=== PATIENT | male | born 1985 | race Caucasian/White ===

== ENCOUNTER → 2017-02-28 | Outpatient (CLI) | payer OTHER ==
[~2017-02-28] MED LIST: NO HOME MEDS
--- NOTE | 2017-02-28 16:00 | REP ---
PARTIAL RIGHT KNEE, THREE VIEWS: HISTORY: Pain. COMPARISON: 09/17/2016 There is no acute fracture or dislocation. The joint spaces are normal in appearance. IMPRESSION: There is no acute fracture or dislocation. Signed by Arthur Chambers MD 02/28/2017 04:04 P
--- NOTE | 2017-02-28 16:01 | REP ---
NASAL BONES, THREE VIEWS: HISTORY: Pain. There is no acute fracture or bone lesion. The sinuses are clear. IMPRESSION:Normal study. Signed by Arthur Chambers MD 02/28/2017 04:04 P
--- NOTE | 2017-02-28 16:02 | REP ---
ORBITS, FOUR VIEWS: HISTORY: Pain. There is no acute fracture or bone lesion. The sinuses are clear. IMPRESSION: There is no acute fracture or bone lesion. Signed by Arthur Chambers MD 02/28/2017 04:04 P
[2017-02-28 19:43] LABS: ALKALINE PHOSPHATASE 135 U/L (45-117); ALT/SGPT 91 U/L (12-78); ANION GAP 6 MEQ/L (8-16); AST/SGOT 52 U/L (15-37); BILIRUBIN,TOTAL 0.4 MG/DL (0.2-1.0); BLOOD UREA NITROGEN 15 MG/DL (7-18); CALCIUM LEVEL 8.3 MG/DL (8.5-10.1); CARBON DIOXIDE LEVEL 30 MEQ/L (21-32); CHLORIDE LEVEL 106 MEQ/L (98-107); CREATININE FOR GFR 1.29 MG/DL (0.70-1.30); GLOMERULAR FILTRATION RATE > 60.0 (>60); GLUCOSE, FASTING 102 MG/DL (70-105); POTASSIUM SERUM 4.1 MEQ/L (3.5-5.1); SODIUM LEVEL 142 MEQ/L (136-145)
[2017-02-28 19:44] LABS: ALBUMIN 3.7 GM/DL (3.2-5.2); ALBUMIN/GLOBULIN RATIO 1.28 (1.00-1.93); CHOLESTEROL LEVEL 231 MG/DL (<200); TOTAL PROTEIN 6.6 GM/DL (6.4-8.2); TRIGLYCERIDES LEVEL 696 MG/DL (<150)
[2017-02-28 20:02] LABS: BASO # 0.1 K/mm3 (0.0-0.2); BASO % 1.4 % (0.0-1.0); EOS # 0.2 K/mm3 (0.0-0.50); EOS % 2.9 % (0.0-3.0); LYMPH # 2.5 K/mm3 (1.5-4.5); LYMPH % 36.8 % (24.0-44.0); MEAN CORPUSCULAR HEMOGLOBIN 31.3 pg (27.0-33.0); MEAN CORPUSCULAR HGB CONC 34.8 g/dl (32.0-36.5); MEAN CORPUSCULAR VOLUME 89.9 fl (80.0-96.0); MONO # 0.3 K/mm3 (0.0-0.8); MONO % 5.3 % (0.0-5.0); NEUTROPHILS # 3.4 K/mm3 (1.8-7.7); NEUTROPHILS % 51.9 % (36.0-66.0); RED CELL DISTRIBUTION WIDTH 12.9 % (11.5-14.5); WHITE BLOOD COUNT 6.5 K/mm3 (4.0-10.0)
== END ==
LOC: M WUC 14:57
PROVIDERS: ATTEND Physician Assistant Medical
DX: M25.561 Pain in right knee (principal); I10 Essential (primary) hypertension; Z11.3 Encounter for screening for infections with a predominantly sexual mode of transmission

== ENCOUNTER → 2017-03-09 | Outpatient (CLI) | payer OTHER ==
--- NOTE | 2017-03-10 04:55 | REP ---
Clinical: Elevated liver function tests. Technique: Time hopson scale ultrasound examination using curved array transducer. Findings: Ultrasound examination demonstrates fatty infiltration to the liver with areas of fatty sparing, and no significant focal hepatic abnormality. The pancreas is incompletely evaluated due to interposed bowel gas and decreased through transmission. The gallbladder is normal and without wall thickening, pericholecystic fluid, or gallstones. No biliary ductal dilatation is appreciated and the common bile duct measures 1.5 mm diameter. The right kidney is normal in reniform shape without hydronephrosis and measures 11.9 x 6.6 x 4.6 cm. Impression: Fatty infiltration to the liver with areas of fatty sparing. Otherwise normal right upper quadrant ultrasound. Signed by Duy Holland MD 03/10/2017 04:46 A
--- NOTE | 2017-03-10 06:54 | REP ---
CT chest with contrast: 03/09/2017. Clinical history: Follow-up 2.5 mm pulmonary nodule left upper lobe. Dyspnea. Smoking history. The patient received a bolus of 75 ml of Isovue 370 and scanning through the chest with coronal and sagittal reconstructions and thick slab lung window MIP reformats. Again noted in the left upper lobe subpleural region near the anterior axillary line is a 2.5 mm noncalcified nodule best seen on image 42 today. The remainder of the left lung and the entire right lung are without other nodules, infiltrate, pleural thickening, pleural based mass or calcification nor pleural effusion. There are no solid masses. Heart is not enlarged. There is no pericardial thickening or effusion. The aorta is without aneurysm or dissection. The main right and left pulmonary arteries in the mediastinum are without filling defects. No pathologic sized nodes in the mediastinum, hilum on either side. Axilla and supraclavicular regions intact. Bone windows show the sternum, manubrium, medial clavicles, scapula, humeral heads, ribs and the thoracic spine and lower cervical region all without fracture or focal lesion. The upper abdomen shows liver and spleen grossly intact and those portions visualized. The gallbladder shows no calcified stone. Adrenal glands intact. Upper poles kidneys, visualized portion of pancreas, stomach and colon were all unremarkable. Impression: 1. Stable CT with no evidence of infiltrate, effusion, new nodule or mass. There is a 2.5 mm noncalcified nodule subpleural region left upper lobe near the anterior axillary line and unchanged. According to Fleischner Society for pulmonary nodule followup recommendations for nodules of this size (less than 4 mm), an exam should be performed 1 year from the initial examination and if documented stable after 1 year, no further follow-up is needed for that nodule. No other finding. Signed by Marcos Thornton MD 03/10/2017 04:42 P
== END ==
LOC: M RAD 07:36
PROVIDERS: ATTEND Physician Assistant Medical
DX: R94.5 Abnormal results of liver function studies (principal); K76.0 Fatty (change of) liver, not elsewhere classified; R91.1 Solitary pulmonary nodule

== ENCOUNTER 2017-04-18 07:40 | Emergency (ER) | payer MEDICAID, OTHER ==
[~2017-04-18] VITALS: Ht 185.4 cm; Wt 118.0 kg
[2017-04-18] MEDS ORDERED: LOSA100T36 PO (08:00)
[2017-04-18] MEDS ORDERED: LISI-538 PO (08:58)
[2017-04-18 09:07] VITALS: BP 130/62
--- NOTE | 2017-04-19 16:05 | ECGEPIP ---
Stationary ECG Study [facility] - ED Test Date: 2017-04-18 Pat Name: MASTER ESPITIA Department: Room: - Gender: M Clinical Research Monitor: ana cristina : 1985 Requested By: Reyes Tai Order Number: [id number] Reading MD: Qi Rocha Measurements Intervals [place] Rate: 82 P: 4 IN: 138 QRS: 32 QRSD: 104 T: 85 QT: 359 QTc: 421 Interpretive Statements SINUS RHYTHM WITH FREQUENT SUPRAVENTRICULAR PREMATURE COMPLEXES NONSPECIFIC T-WAVE ABNORMALITY ABNORMAL RHYTHM ECG NO PRIOR FOR COMPARISON Electronically Signed On 04-19-2017 16:05:00 EDT by Qi Rocha
[2017-05-02] MEDS ORDERED: CIPR500T89 PO (15:07)
== END 2017-04-18 09:13 | disposition home or self-care (01) ==
LOC: M ED 08:14
DX: T46.4X5A Adverse effect of angiotensin-converting-enzyme inhibitors, initial encounter (principal); X58.XXXA Exposure to other specified factors, initial encounter; Y92.9 Unspecified place or not applicable; Y93.9 Activity, unspecified; Y99.9 Unspecified external cause status; I10 Essential (primary) hypertension; F17.200 Nicotine dependence, unspecified, uncomplicated; Z91.030 Bee allergy status

== ENCOUNTER 2017-05-02 13:35 | Emergency (ER) | payer OTHER ==
[~2017-05-02 13:35] MED LIST changes: +LISI-538 PO; +LOSA100T36 PO
[2017-05-02] MEDS ORDERED: ONDANSETRON 4MG/2ML VIAL (J2405) IV ONE (14:00)
[2017-05-02] MEDS ORDERED: NS 1,000 ML IV ONE (14:00)
[2017-05-02] MEDS ORDERED: MORPHINE 4 MG/ML 1ML SYRINGE IV ONE (14:00)
[2017-05-02 14:22] LABS: BASO # 0.1 K/mm3 (0.0-0.2); BASO % 0.7 % (0.0-1.0); EOS # 0.5 K/mm3 (0.0-0.50); EOS % 3.8 % (0.0-3.0); LARGE UNSTAINED CELL # 0.2 K/mm3 (0.0-0.4); LARGE UNSTAINED CELL % 1.3 % (0.0-4.0); LYMPH # 2.4 K/mm3 (1.5-4.5); MEAN CORPUSCULAR HEMOGLOBIN 30.9 pg (27.0-33.0); MEAN CORPUSCULAR HGB CONC 33.5 g/dl (32.0-36.5); MEAN CORPUSCULAR VOLUME 92.4 fl (80.0-96.0); MONO # 0.6 K/mm3 (0.0-0.8); MONO % 4.7 % (0.0-5.0); NEUTROPHILS # 9.7 K/mm3 (1.8-7.7); NEUTROPHILS % 72.5 % (36.0-66.0); PLATELET COUNT, AUTOMATED 159 k/mm3 (150-450); WHITE BLOOD COUNT 13.4 K/mm3 (4.0-10.0)
--- NOTE | 2017-05-02 14:36 | REP ---
Clinical: Acute right upper quadrant pain radiating to the scapula. Technique: Ramirez scale ultrasound using curved array transducer. Findings: The liver demonstrates fatty infiltration with focal sparing at the gallbladder fossa. Liver and pancreas are otherwise normal in contour, size, and echogenicity without focal hepatic or pancreatic lesions identified. The gallbladder is normal without gallstones, significant wall thickening or pericholecystic fluid. Sonographic Abernathy's sign was elicited during examination. No biliary ductal dilatation is appreciated, and the common bile duct measures 3.8 mm diameter. The right kidney is normal in reniform shape without hydronephrosis and measures 11.7 x 6.6 x 5.4 cm. No ascites. Visualized portions of the abdominal aorta normal. Impression: 1. Hepatic steatosis. 2. Sonographic Abernathy's sign without cholelithiasis or pericholecystic fluid and no biliary ductal dilatation. Finding is nonspecific. Signed by Duy Holland MD 05/02/2017 02:27 P
[2017-05-02 14:38] LABS: ALBUMIN 3.5 GM/DL (3.2-5.2); ALBUMIN/GLOBULIN RATIO 0.92 (1.00-1.93); ALKALINE PHOSPHATASE 139 U/L (45-117); ALT/SGPT 57 U/L (12-78); AMYLASE 38 U/L (25-115); ANION GAP 7 MEQ/L (8-16); AST/SGOT 29 U/L (15-37); BILIRUBIN,DIRECT < 0.1 MG/DL (0.0-0.2); BILIRUBIN,TOTAL 0.4 MG/DL (0.2-1.0); BLOOD UREA NITROGEN 8 MG/DL (7-18); CALCIUM LEVEL 9.1 MG/DL (8.5-10.1); CARBON DIOXIDE LEVEL 27 MEQ/L (21-32); CHLORIDE LEVEL 104 MEQ/L (98-107); CREATININE FOR GFR 1.25 MG/DL (0.70-1.30); GLOMERULAR FILTRATION RATE > 60.0 (>60); GLUCOSE, FASTING 122 MG/DL (70-105); POTASSIUM SERUM 4.1 MEQ/L (3.5-5.1); SODIUM LEVEL 138 MEQ/L (136-145); TOTAL PROTEIN 7.3 GM/DL (6.4-8.2)
[2017-05-02] MEDS ORDERED: FLAG500T PO (15:07)
[2017-05-02] MEDS ORDERED: CIPR-249 PO (15:07)
[2017-05-02] MEDS ORDERED: NORCOTAB PO (15:07)
[2017-05-02] MEDS ORDERED: ZOFR4TAB3 PO (15:07)
[2017-05-02 15:12] VITALS: BP 137/66
[2017-05-02] MEDS ORDERED: CIPROFLOXACIN 500 MG TAB PO ONE (15:15)
[2017-05-02] MEDS ORDERED: metroNIDAZOLE (FLAGYL) 500 MG TAB PO ONE (15:15)
== END 2017-05-02 15:17 | disposition home or self-care (01) ==
LOC: M ED 14:43
DX: K80.50 Calculus of bile duct without cholangitis or cholecystitis without obstruction (principal); I10 Essential (primary) hypertension; Z79.899 Other long term (current) drug therapy; Z91.030 Bee allergy status; F17.210 Nicotine dependence, cigarettes, uncomplicated

== ENCOUNTER → 2017-10-16 | Outpatient (CLI) | payer OTHER ==
[~2017-10-16] MED LIST changes: +CIPR-249 PO; +FLAG500T PO; +NORCOTAB PO; +ZOFR4TAB3 PO
--- NOTE | 2017-10-16 13:51 | REP ---
Right hand series: Four views. History: Second metacarpal pain. No injury. Findings: Four views of the right hand show overall normal mineralization. No evidence of arthropathy or erosive change. No periosteal reaction or bony destructive lesion is seen. No change from comparison radiographs dated September 17, 2016. Impression: Negative right hand views. Signed by Rocco Duggan MD 10/16/2017 03:03 P
== END ==
LOC: M WUC 12:36
PROVIDERS: ATTEND Physician Assistant
DX: M25.541 Pain in joints of right hand (principal)

== ENCOUNTER → 2018-12-19 | Outpatient (CLI) | payer OTHER ==
[~2018-12-19] MED LIST changes: -LOSA100T36 PO; +LOSA100T50 PO; +ZOFR4TAB14 PO; -ZOFR4TAB3 PO
--- NOTE | 2018-12-19 13:25 | REP ---
Right humerus two views: There is no fracture or dislocation. No calcifications or foreign bodies. Mineralization is normal. Impression: Essentially negative right humerus. The humeral head is underpenetrated on one of the two views. Electronically Signed by Sotero Calderon MD 12/19/2018 01:16 P
--- NOTE | 2018-12-19 13:25 | REP ---
Right elbow for views: Mineralization and joint spaces are unremarkable. There is no fracture or dislocation. No effusion. No calcifications or foreign bodies. There is an olecranon spur. Impression: Olecranon spur, otherwise negative right elbow. The Electronically Signed by Sotero Calderon MD 12/19/2018 01:17 P
== END ==
LOC: M WUC 12:22
PROVIDERS: ATTEND Physician Assistant
DX: M70.21 Olecranon bursitis, right elbow (principal)

== ENCOUNTER → 2019-03-07 | Outpatient (CLI) | payer OTHER ==
[~2019-03-07] MED LIST changes: +HYDR-3715 PO; -NORCOTAB PO
--- NOTE | 2019-03-07 12:23 | REP ---
RIGHT FOOT, FOUR VIEWS: HISTORY: Pain. There is no acute fracture or dislocation. The joint spaces are normal in appearance. IMPRESSION: There is no acute fracture or dislocation. Electronically Signed by Arthur Chambers MD 03/07/2019 12:25 P
[2019-03-07 13:50] LABS: BASO # 0.1 10^3/uL (0.0-0.2); EOS # 0.2 10^3/uL (0.0-0.50); EOS % 2.3 % (0.0-3.0); HEMATOCRIT 50.6 % (42.0-52.0); HEMOGLOBIN 16.6 g/dl (13.5-17.5); LYMPH # 2.7 10^3/uL (1.5-4.5); LYMPH % 34.3 % (24.0-44.0); MEAN CORPUSCULAR HEMOGLOBIN 29.7 pg (27.0-33.0); MEAN CORPUSCULAR HGB CONC 32.8 g/dl (32.0-36.5); MEAN CORPUSCULAR VOLUME 90.7 fl (80.0-96.0); MONO # 0.7 10^3/uL (0.0-0.8); MONO % 8.3 % (0.0-5.0); NEUTROPHILS # 4.2 10^3/uL (1.8-7.7); NEUTROPHILS % 52.7 % (36.0-66.0); PLATELET COUNT, AUTOMATED 178 10^3/uL (150-450); RED BLOOD COUNT 5.58 10^6/uL (4.30-6.10); WHITE BLOOD COUNT 7.9 10^3/uL (4.0-10.0)
== END ==
LOC: M WUC 10:37
PROVIDERS: ATTEND Physician Assistant
DX: M79.671 Pain in right foot (principal)

== ENCOUNTER → 2019-08-26 | Outpatient (CLI) | payer OTHER ==
[~2019-08-26] MED LIST changes: +IBUP1TAB7 PO
--- NOTE | 2019-08-27 02:47 | REP ---
Clinical: Right knee pain Technique: AP, lateral, bilateral oblique and sunrise views right knee . Findings: The osseous structures and joint spaces are intact and normal. There is no evidence for acute fracture or dislocation. No joint effusion is appreciated. Surrounding soft tissues are unremarkable. No subcutaneous emphysema or radiodense foreign body. Impression: Normal examination. No acute fracture or dislocation. Electronically Signed by Duy Holland MD 08/27/2019 02:38 A
== END ==
LOC: M WUC 15:03
PROVIDERS: ATTEND Nurse Practitioner Family
DX: M25.561 Pain in right knee (principal)

== ENCOUNTER → 2019-08-31 | Outpatient (CLI) | payer OTHER ==
--- NOTE | 2019-08-31 14:52 | REP ---
MRI RIGHT KNEE: TECHNIQUE: Axial proton density fat saturation, sagittal proton density T2 STIR, water excitation, coronal proton density, proton density fat saturation. I do not see evidence of a meniscal tear. Posterior cruciate ligament is normal in signal and intact. Anterior cruciate ligament demonstrates mild scattered high signal on T2-weighted images suggesting a mild sprain. Focal oval cyst with a few internal septations is seen adjacent to the tibial insertion of the ACL measuring about 1 cm in maximum diameter. There is a tiny 5 mm cyst along the posterior margin of the anterior cruciate ligament at its femoral insertion. Collateral ligaments are intact. Medial and lateral patellar retinacula are intact. Extensor mechanism is intact. There is mild global chondromalacia. There is no bone marrow edema or occult fracture. There is a small joint effusion. No popliteal cyst is seen. IMPRESSION: No meniscal tear. Findings suggesting mild sprain of the anterior cruciate ligament. Collateral ligaments intact. Small cyst is seen along the anterior cruciate ligament at its tibial and femoral insertions sites. Small joint effusion. Electronically Signed by Sotero Ramirez MD 08/31/2019 05:18 P
== END ==
LOC: M RAD 12:31
PROVIDERS: ATTEND Orthopaedic Surgery Sports Medicine
DX: M25.561 Pain in right knee (principal); M25.461 Effusion, right knee; M94.261 Chondromalacia, right knee; M85.461 Solitary bone cyst, right tibia and fibula

== ENCOUNTER → 2021-02-04 | Outpatient (CLI) | payer OTHER ==
[~2021-02-04] MED LIST changes: -LISI-538 PO; +LISI20TA33 PO
--- NOTE | 2021-02-04 12:03 | REP ---
INDICATION: COUGH. COMPARISON: CT 03/09/2017, chest 04/25/2016. TECHNIQUE: Two views FINDINGS: The lung chavez are well inflated and without infiltrate, pleural effusion, atelectasis or mass. No peripheral opacities are noted. No pulmonary nodules are present. The heart, mediastinal and hilar contours are normal. The aorta and airway are intact. The wallace are symmetric and normal. The bony thorax is unremarkable. IMPRESSION: 1. No acute cardiopulmonary disease, stable chest. <Electronically signed by Marcos Thornton > 02/04/21 [id number]
== END ==
LOC: M RAD 11:22
PROVIDERS: ATTEND Specialist
DX: R05 Cough (principal)

== ENCOUNTER 2021-06-13 14:46 | Emergency (ER) | payer OTHER ==
[~2021-06-13] VITALS: Ht 185.4 cm; Wt 124.5 kg
[2021-06-13] MEDS ORDERED: GABAPENTIN 300 MG CAP PO ONE ×2 (17:30→19:30)
--- NOTE | 2021-06-13 17:58 | REPVR ---
PROCEDURE INFORMATION: Exam: CT Head Without Contrast Exam date and time: 06/13/2021 5:49 PM Age: 35 years old Clinical indication: Numbness / parasthesia; Additional info: Burning tingling extremities upper and lower, intermittentha TECHNIQUE: Imaging protocol: Computed tomography of the head without contrast. Radiation optimization: All CT scans at this facility use at least one of these dose optimization techniques: automated exposure control; mA and/or kV adjustment per patient size (includes targeted exams where dose is matched to clinical indication); or iterative reconstruction. COMPARISON: No relevant prior studies available. FINDINGS: Brain: Normal. No hemorrhage. Unremarkable white matter. No mass effect. Cerebral ventricles: No ventriculomegaly. Paranasal sinuses: Visualized sinuses are unremarkable. No fluid levels. Mastoid air cells: Visualized mastoid air cells are well aerated. Bones/joints: Unremarkable. No acute fracture. Soft tissues: Unremarkable. IMPRESSION: No acute intracranial abnormality. Electronically signed by: Danie Brown On 06/13/2021 17:58:37 PM
[2021-06-13 18:02] LABS: BASO # 0.1 10^3/uL (0.0-0.2); BASO % 0.6 % (0.0-1.0); EOS # 0.2 10^3/uL (0.0-0.5); EOS % 2.1 % (0.0-3.0); HEMATOCRIT 52.6 % (42.0-52.0); HEMOGLOBIN 17.5 g/dl (13.5-17.5); LYMPH # 3.3 10^3/uL (1.5-5.0); LYMPH % 37.9 % (24.0-44.0); MEAN CORPUSCULAR HEMOGLOBIN 30.4 pg (27.0-33.0); MEAN CORPUSCULAR HGB CONC 33.3 g/dl (32.0-36.5); MEAN CORPUSCULAR VOLUME 91.5 fl (80.0-96.0); MONO # 0.6 10^3/uL (0.0-0.8); MONO % 6.8 % (2.0-8.0); NEUTROPHILS # 4.5 10^3/uL (1.5-8.5); PLATELET COUNT, AUTOMATED 157 10^3/uL (150-450); RED BLOOD COUNT 5.75 10^6/uL (4.30-6.10); WHITE BLOOD COUNT 8.7 10^3/uL (4.0-10.0)
--- NOTE | 2021-06-13 18:12 | REP ---
INDICATION: pain lower lateral, r/o tumor COMPARISON: None. TECHNIQUE: There are four views. FINDINGS: There is no fracture or dislocation. Mineralization and joint spaces are normal. There are no calcifications or foreign bodies. IMPRESSION: Negative right tibia fibula. <Electronically signed by Sotero Calderon > 06/13/21 [id number]
[2021-06-13 18:20] LABS: APPEARANCE, URINE CLEAR (CLEAR); BACTERIA, URINE AUTO NEGATIVE (NEGATIVE); BILIRUBIN, URINE AUTO NEGATIVE (NEGATIVE); BLOOD, URINE BLOOD NEGATIVE (NEGATIVE); COLOR, URINE YELLOW (YELLOW); GLUCOSE, URINE (UA) AUTO NEGATIVE (NEGATIVE); KETONE, URINE AUTO NEGATIVE (NEGATIVE); LEUKOCYTE ESTERASE, URINE AUTO NEGATIVE (NEGATIVE); MUCUS, URINE SMALL (NEGATIVE); NITRITE, URINE AUTO NEGATIVE (NEGATIVE); PROTEIN, URINE AUTO NEGATIVE (NEGATIVE); RBC, URINE AUTO 1 /HPF (0-3); SPECIFIC GRAVITY URINE AUTO 1.021 (1.002-1.035); SQUAMOUS EPITHELIAL CELL UR AU 0 /HPF (0-6); UROBILINOGEN, URINE AUTO 0.2 mg/dL (0.0-2.0); WBC, URINE AUTO 0 /HPF (0-3)
[2021-06-13 18:46] LABS: ERYTHROCYTE SEDIMENTATION RATE 1 mm/hr (0-15)
[2021-06-13 18:50] LABS: ALBUMIN 3.7 GM/DL (3.2-5.2); ALT/SGPT 66 U/L (12-78); BILIRUBIN,DIRECT < 0.1 MG/DL (0.0-0.2); BILIRUBIN,TOTAL 0.3 MG/DL (0.2-1.0); BLOOD UREA NITROGEN 13 MG/DL (7-18); CALCIUM LEVEL 8.7 MG/DL (8.5-10.1); CARBON DIOXIDE LEVEL 23 MEQ/L (21-32); CHLORIDE LEVEL 111 MEQ/L (98-107); CREATININE FOR GFR 0.97 MG/DL (0.70-1.30); FREE THYROXINE INDEX 2.5 % (1.4-3.8); GLOMERULAR FILTRATION RATE > 60.0 (>60); GLUCOSE, FASTING 98 MG/DL (70-100); LIPASE 96 U/L (73-393); MAGNESIUM LEVEL 1.9 MG/DL (1.8-2.4); POTASSIUM SERUM 4.4 MEQ/L (3.5-5.1); SODIUM LEVEL 141 MEQ/L (136-145); T UPTAKE 33 % (33-40); THYROID STIMULATING HORMONE 0.889 uIU/ML (0.358-3.740); THYROXINE (T4) 7.7 UG/DL (4.5-12.0); TOTAL PROTEIN 7.2 GM/DL (6.4-8.2)
--- NOTE | 2021-06-13 19:01 | REP ---
INDICATION: pain lateral leg, r/o dvt. COMPARISON: None. TECHNIQUE: Deep vein duplex ultrasound of the right lower extremity deep veins the and of the left common femoral vein. FINDINGS: The right lower extremity deep veins demonstrate normal compression, normal Doppler color flow and normal Doppler waveforms with respiration augmentation at multiple levels from the popliteal vein the common femoral vein. In addition the posterior tibial vein is compressible throughout. The peroneal vein could not be visualized. The contralateral left common femoral vein this demonstrates normal compression and normal phasicity with Doppler waveforms IMPRESSION: There is no evidence of deep vein thrombus in the right lower extremity. <Electronically signed by Sotero Calderon > 06/13/21 [id number]
[2021-06-13] MEDS ORDERED: NEUR300C PO (19:31)
[2021-06-13 19:54] VITALS: BP 132/99
[2021-06-14 10:35] LABS: VITAMIN B12 LEVEL 632 PG/ML (247-911)
[2021-06-16 10:09] LABS: Lyme Disease IgG/IgM Antibodie <0.91 ISR (0.00-0.90); Lyme Disease IgM Ab Quantitati <0.80 index (0.00-0.79)
== END 2021-06-13 19:57 | disposition home or self-care (01) ==
LOC: M ED 14:46
DX: G62.9 Polyneuropathy, unspecified (principal); I10 Essential (primary) hypertension; F17.200 Nicotine dependence, unspecified, uncomplicated; Z91.030 Bee allergy status

== ENCOUNTER → 2021-06-16 | Outpatient (REF) | payer OTHER, MEDICAID ==
[~2021-06-16] MED LIST changes: +NEUR300C PO
[2021-06-16 13:38] LABS: RHEUMATOID FACTOR QUANT < 10.0 IU/ML (<15.0)
[2021-06-16 13:46] LABS: FOLATE 15.2 NG/ML (>5.4)
[2021-06-16 14:25] LABS: HIV 1&2 SCREEN CENTAUR NEGATIVE (NEGATIVE)
[2021-06-16 16:58] LABS: HEMOGLOBIN A1c 5.4 %
== END ==
LOC: M SFHCADAM 11:24
PROVIDERS: ATTEND Family Medicine
DX: R20.2 Paresthesia of skin (principal)

== ENCOUNTER → 2021-06-28 | Outpatient (CLI) | payer OTHER ==
[2021-06-28 14:03] LABS: HEMOGLOBIN A1c 5.4 %
== END ==
LOC: M PLALAB 10:22
PROVIDERS: ATTEND Psychiatry & Neurology Neurology
DX: E11.40 Type 2 diabetes mellitus with diabetic neuropathy, unspecified (principal)

== ENCOUNTER → 2021-11-17 | Outpatient (REF) | payer OTHER ==
[~2021-11-17] MED LIST changes: +LOSA100T45 PO; -LOSA100T50 PO
[2021-11-17 21:36] LABS: RSV AMPLIFICATION NEGATIVE (NEGATIVE)
== END ==
LOC: M WUC 20:35
PROVIDERS: ATTEND Physician Assistant
DX: J06.9 Acute upper respiratory infection, unspecified (principal)

== ENCOUNTER → 2021-12-17 | Outpatient (CLI) | payer OTHER ==
[2021-12-17 17:53] LABS: THYROID STIMULATING HORMONE 1.55 uIU/ML (0.358-3.740)
== END ==
LOC: M PLALAB 13:51
PROVIDERS: ATTEND Family Medicine
DX: R53.83 Other fatigue (principal); E66.9 Obesity, unspecified; M10.9 Gout, unspecified

== ENCOUNTER 2021-12-23 22:42 | Emergency (ER) | payer OTHER ==
[~2021-12-23] VITALS: Ht 185.4 cm; Wt 133.7 kg
[2021-12-23] MEDS ORDERED: TETRACAINE 0.5% OPHTH SOLN 4ML OS ONE (22:55)
[2021-12-23] MEDS ORDERED: BOOSTRIX/ADACEL VACCINE (DIPHTH/PERTUSS/ACELL/TETANUS) 0.5ML SYR IM ONE (22:55)
[2021-12-23] MEDS ORDERED: FLUORESCEIN OPHTH 1 MG STRIP OS ONE (23:10)
[2021-12-23] MEDS ORDERED: MORPHINE 4 MG/ML 1ML VIAL/SYRINGE (J2270) IV ONE (23:35)
[2021-12-24] MEDS ORDERED: ERYT5OIN25 OS (00:41)
[2021-12-24] MEDS ORDERED: ERYTHROMYCIN OPHTH OINT OS ONE (00:45)
[2021-12-24] MEDS ORDERED: NORCO 5/325MG TABLET (BULK FOR ED) PO ONE (00:45)
[2021-12-24 00:50] VITALS: BP 133/79
[2021-12-24] MEDS ORDERED: NORCO, ANEXSIA 5/325MG TABLET (HYDROcodone/ACETAMINOPHEN) PO ONE (00:50)
== END 2021-12-24 01:05 | disposition home or self-care (01) ==
LOC: M ED 22:42
DX: H11.32 Conjunctival hemorrhage, left eye (principal); S05.02XA Injury of conjunctiva and corneal abrasion without foreign body, left eye, initial encounter; Y04.8XXA Assault by other bodily force, initial encounter; Y92.018 Other place in single-family (private) house as the place of occurrence of the external cause; I10 Essential (primary) hypertension; G62.9 Polyneuropathy, unspecified; Z91.030 Bee allergy status; Z79.899 Other long term (current) drug therapy
CPT/HCPCS: 70480; 90471; 90715; 96372; 99283; J2270

== ENCOUNTER → 2022-03-11 | Outpatient (CLI) | payer OTHER, MEDICAID ==
[~2022-03-11] MED LIST changes: +ERYT5OIN25 OS
== END ==
LOC: M PAIN 15:00
PROVIDERS: ATTEND Nurse Practitioner Family
DX: M51.16 Intervertebral disc disorders with radiculopathy, lumbar region (principal); G89.29 Other chronic pain; Z86.14 Personal history of Methicillin resistant Staphylococcus aureus infection; Z87.891 Personal history of nicotine dependence; Z88.8 Allergy status to other drugs, medicaments and biological substances; Z91.030 Bee allergy status; Z79.899 Other long term (current) drug therapy

== ENCOUNTER → 2022-03-26 | Outpatient (CLI) | payer OTHER, MEDICAID | LOC: M LABSMTC 11:20 | PROVIDERS: ATTEND Anesthesiology | DX: Z01.812 Encounter for preprocedural laboratory examination (principal); Z20.822 Contact with and (suspected) exposure to COVID-19 ==

== ENCOUNTER → 2022-03-29 | Outpatient (CLI) | payer OTHER ==
[~2022-03-29] MED LIST changes: +ISOVUE-M 300 61% 15ML VIAL As Ordered ONE; +LIDOCAINE 1% SDV 30ML VIAL As Ordered ONE; +diazePAM 5MG TABLET As Ordered ONE; +methylPREDNISolone SUSP 40MG/ML 1ML VIAL (DEPO MEDROL) As Ordered ONE; +oxyCODONE 5MG TAB As Ordered ONE
[2022-03-29 12:20] VITALS: BP 163/88
== END ==
LOC: M IRPRO 10:40
PROVIDERS: ATTEND Anesthesiology
DX: M51.16 Intervertebral disc disorders with radiculopathy, lumbar region (principal); G89.29 Other chronic pain; I10 Essential (primary) hypertension; Z91.030 Bee allergy status; Z86.14 Personal history of Methicillin resistant Staphylococcus aureus infection
CPT/HCPCS: 62323; J1030; Q9967

== ENCOUNTER → 2022-06-01 | Outpatient (CLI) | payer OTHER, MEDICAID ==
[~2022-06-01] MED LIST changes: -ISOVUE-M 300 61% 15ML VIAL As Ordered ONE; -LIDOCAINE 1% SDV 30ML VIAL As Ordered ONE; -diazePAM 5MG TABLET As Ordered ONE; -methylPREDNISolone SUSP 40MG/ML 1ML VIAL (DEPO MEDROL) As Ordered ONE; -oxyCODONE 5MG TAB As Ordered ONE
== END ==
LOC: M PAIN 14:15
PROVIDERS: ATTEND Nurse Practitioner Family
DX: M51.16 Intervertebral disc disorders with radiculopathy, lumbar region (principal); G89.29 Other chronic pain; Z86.14 Personal history of Methicillin resistant Staphylococcus aureus infection; Z87.891 Personal history of nicotine dependence; Z88.8 Allergy status to other drugs, medicaments and biological substances; Z91.030 Bee allergy status; Z79.899 Other long term (current) drug therapy

== ENCOUNTER → 2022-06-30 | Outpatient (CLI) | payer OTHER, MEDICAID | LOC: M LABSMTC 10:48 | PROVIDERS: ATTEND Anesthesiology | DX: Z11.52 Encounter for screening for COVID-19 (principal) ==

== ENCOUNTER → 2022-07-05 | Outpatient (CLI) | payer OTHER, MEDICAID ==
[~2022-07-05] MED LIST changes: +BUPIVACAINE HCL 0.25% 30ML VIAL As Ordered ONE; +ISOVUE-M 300 61% 15ML VIAL As Ordered ONE; +LIDOCAINE 1% SDV 30ML VIAL As Ordered ONE; +dexameTHASONE 10MG/1ML VIAL PRES.FREE (J1100 PER 1MG) As Ordered ONE; +diazePAM 5MG TABLET As Ordered ONE; +oxyCODONE 5MG TAB As Ordered ONE
== END ==
LOC: M PAIN 12:30
PROVIDERS: ATTEND Anesthesiology
DX: M51.16 Intervertebral disc disorders with radiculopathy, lumbar region (principal); M51.17 Intervertebral disc disorders with radiculopathy, lumbosacral region; G89.29 Other chronic pain; Z86.14 Personal history of Methicillin resistant Staphylococcus aureus infection; Z87.891 Personal history of nicotine dependence; Z79.899 Other long term (current) drug therapy
CPT/HCPCS: 64483; 64484; J1100; Q9967

== ENCOUNTER 2022-08-03 10:54 | Emergency (ER) | payer MEDICAID, OTHER ==
[~2022-08-03] VITALS: Ht 185.4 cm; Wt 125.1 kg
[~2022-08-03 10:54] MED LIST changes: -BUPIVACAINE HCL 0.25% 30ML VIAL As Ordered ONE; -ISOVUE-M 300 61% 15ML VIAL As Ordered ONE; -LIDOCAINE 1% SDV 30ML VIAL As Ordered ONE; -dexameTHASONE 10MG/1ML VIAL PRES.FREE (J1100 PER 1MG) As Ordered ONE; -diazePAM 5MG TABLET As Ordered ONE; -oxyCODONE 5MG TAB As Ordered ONE
[2022-08-03 10:55] VITALS: BP 155/100
== END 2022-08-03 13:35 | disposition left against medical advice (07) ==
LOC: M ED 10:54
DX: Z53.21 Procedure and treatment not carried out due to patient leaving prior to being seen by health care provider (principal)

== ENCOUNTER → 2022-08-09 | Outpatient (CLI) | payer OTHER, MEDICAID | LOC: M PAIN 14:15 | PROVIDERS: ATTEND Nurse Practitioner Family | DX: M51.16 Intervertebral disc disorders with radiculopathy, lumbar region (principal); G89.29 Other chronic pain; R22.41 Localized swelling, mass and lump, right lower limb; Z86.14 Personal history of Methicillin resistant Staphylococcus aureus infection; Z87.891 Personal history of nicotine dependence; Z88.8 Allergy status to other drugs, medicaments and biological substances; Z91.030 Bee allergy status; Z79.899 Other long term (current) drug therapy ==

== ENCOUNTER → 2022-08-29 | Outpatient (CLI) | payer OTHER | LOC: M RAD 15:30 | PROVIDERS: ATTEND Nurse Practitioner Family | DX: R22.41 Localized swelling, mass and lump, right lower limb (principal) ==

== ENCOUNTER → 2022-09-02 | Outpatient (CLI) | payer OTHER, MEDICAID | LOC: M PAIN 14:30 | PROVIDERS: ATTEND Anesthesiology | DX: M51.16 Intervertebral disc disorders with radiculopathy, lumbar region (principal); M79.661 Pain in right lower leg; G89.29 Other chronic pain; Z86.14 Personal history of Methicillin resistant Staphylococcus aureus infection; Z87.891 Personal history of nicotine dependence; Z88.8 Allergy status to other drugs, medicaments and biological substances; Z91.030 Bee allergy status; Z79.899 Other long term (current) drug therapy ==

== ENCOUNTER → 2022-11-21 | Outpatient (CLI) | payer MEDICAID, OTHER | LOC: M RAD 16:14 | PROVIDERS: ATTEND Physician Assistant | DX: S80.11XA Contusion of right lower leg, initial encounter (principal); X58.XXXA Exposure to other specified factors, initial encounter; Y92.9 Unspecified place or not applicable; Y93.9 Activity, unspecified; Y99.9 Unspecified external cause status ==

== ENCOUNTER → 2022-12-09 | Outpatient (CLI) | payer OTHER | LOC: M PLAIMG 15:02 | PROVIDERS: ATTEND Physician Assistant | DX: M47.896 Other spondylosis, lumbar region (principal) ==

== ENCOUNTER → 2022-12-16 | Outpatient (CLI) | payer OTHER ==
[2022-12-16 17:30] LABS: BASO # 0.1 10^3/uL (0.0-0.2); BASO % 1.2 % (0.0-1.0); EOS # 0.1 10^3/uL (0.0-0.5); HEMATOCRIT 58.3 % (42.0-52.0); HEMOGLOBIN 19.1 g/dl (13.5-17.5); LYMPH % 34.9 % (24.0-44.0); MEAN CORPUSCULAR HEMOGLOBIN 29.6 pg (27.0-33.0); MEAN CORPUSCULAR HGB CONC 32.8 g/dl (32.0-36.5); MEAN CORPUSCULAR VOLUME 90.4 fl (80.0-96.0); MONO # 1.2 10^3/uL (0.0-0.8); MONO % 10.2 % (2.0-8.0); NEUTROPHILS % 52.1 % (36.0-66.0); PLATELET COUNT, AUTOMATED 194 10^3/uL (150-450); RED BLOOD COUNT 6.45 10^6/uL (4.30-6.10); WHITE BLOOD COUNT 11.4 10^3/uL (4.0-10.0)
[2022-12-16 17:32] LABS: INR 1.02; PROTHROMBIN TIME 13.6 SECONDS (12.5-14.5)
[2022-12-16 17:33] LABS: PARTIAL THROMBOPLASTIN TIME 35.3 SECONDS (24.8-34.2)
[2022-12-16 17:49] LABS: C REACTIVE PROTEIN QUANTITATIV < 0.40 MG/DL (<1.0)
[2022-12-16 17:50] LABS: RHEUMATOID FACTOR QUANT 6.7 IU/ML (<14)
[2022-12-16 18:20] LABS: ERYTHROCYTE SEDIMENTATION RATE 5 mm/hr (0-15)
[2022-12-19 15:08] LABS: ANTI DOUBLE STRAND-DNA AB 4 IU/mL (0-9); ANTINUCLEAR ANTIBODIES DIRECT Positive (Negative); RNP ANTIBODIES <0.2 AI (0.0-0.9); SJOGREN'S ANTI SS-A <0.2 AI (0.0-0.9); SJOGREN'S ANTI SS-B <0.2 AI (0.0-0.9); SMITH ANTIBODIES <0.2 AI (0.0-0.9)
== END ==
LOC: M PLALAB 16:05
PROVIDERS: ATTEND Physician Assistant
DX: M51.36 Other intervertebral disc degeneration, lumbar region (principal)

== ENCOUNTER → 2023-06-16 | Outpatient (CLI) | payer MEDICAID, OTHER ==
[~2023-06-16] MED LIST changes: -LOSA100T45 PO; +LOSA100T46 PO
[2023-06-16 15:17] LABS: C REACTIVE PROTEIN QUANTITATIV < 0.40 MG/DL (<1.0)
[2023-06-16 15:19] LABS: ALBUMIN 3.6 G/DL (3.2-5.2); ALKALINE PHOSPHATASE 97 U/L (46-116); ALT/SGPT 57 U/L (7.0-40); AST/SGOT 29 U/L (<34); BILIRUBIN,DIRECT 0.1 MG/DL (<0.4); BILIRUBIN,TOTAL 0.5 MG/DL (0.3-1.2); BLOOD UREA NITROGEN 16 MG/DL (9-23); CALCIUM LEVEL 8.6 MG/DL (8.5-10.1); CARBON DIOXIDE LEVEL 30 MMOL/L (20-31); CHLORIDE LEVEL 104 MMOL/L (98-107); CREATININE FOR GFR 1.09 MG/DL (0.70-1.30); GLOMERULAR FILTRATION RATE > 60.0 (>60); GLUCOSE, FASTING 92 MG/DL (60-100); IRON (FE) 68 UG/DL (65-175); MAGNESIUM LEVEL 1.9 MG/DL (1.8-2.4); PHOSPHORUS LEVEL 2.9 MG/DL (2.5-4.9); SODIUM LEVEL 141 MMOL/L (136-145); TOTAL PROTEIN 6.5 G/DL (5.7-8.2)
[2023-06-16 15:22] LABS: FREE T4 0.81 NG/DL (0.89-1.76); THYROID STIMULATING HORMONE 1.267 uIU/ML (0.55-4.78); TOTAL 25(OH) VITAMIN D 20.7 NG/ML (20.0-100.0); VITAMIN B12 LEVEL 332 PG/ML (211-911)
[2023-06-16 15:24] LABS: CPK CREATINE PHOSPHOKINASE 265 U/L (46-171)
== END ==
LOC: M RAD 13:38
PROVIDERS: ATTEND Internal Medicine
DX: M54.9 Dorsalgia, unspecified (principal); M79.10 Myalgia, unspecified site; Z79.1 Long term (current) use of non-steroidal anti-inflammatories (NSAID)

== ENCOUNTER → 2023-06-16 | Outpatient (REF) | payer OTHER, MEDICAID | LOC: M SFHCRHEU 10:43 | PROVIDERS: ATTEND Internal Medicine | DX: Z53.9 Procedure and treatment not carried out, unspecified reason (principal) ==

== ENCOUNTER → 2023-08-11 | Outpatient (REF) | payer OTHER, MEDICAID ==
[2023-08-11 14:04] LABS: FREE T3 3.5 PG/ML (2.3-4.2); FREE T4 0.89 NG/DL (0.89-1.76); THYROID STIMULATING HORMONE 1.838 uIU/ML (0.55-4.78)
== END ==
LOC: M SFHCRHEU 09:50
PROVIDERS: ATTEND Internal Medicine
DX: R79.89 Other specified abnormal findings of blood chemistry (principal)

== ENCOUNTER → 2023-11-10 | Outpatient (CLI) | payer OTHER, MEDICAID ==
[2023-11-10 13:03] LABS: RSV AMPLIFICATION NEGATIVE (NEGATIVE)
== END ==
LOC: M WUC 10:39
PROVIDERS: ATTEND Physician Assistant
DX: R05.9 Cough, unspecified (principal)

== ENCOUNTER → 2024-01-10 | Outpatient (CLI) | payer OTHER, MEDICAID | LOC: M ADAMS 11:53 | PROVIDERS: ATTEND Family Medicine | DX: J45.41 Moderate persistent asthma with (acute) exacerbation (principal) ==

== ENCOUNTER → 2024-02-20 | Outpatient (CLI) | payer OTHER ==
[~2024-02-20] MED LIST changes: +E-Z-GAS II EFFERVESCENT PACKET (SODIUM BICARB./CITRIC ACID/SIMETHICONE) As Ordered ONE; +E-Z-HD 98% w/w 340GM SUSP BTL As Ordered ONE; +E-Z-PAQUE 96% w/w SUSP 176GM BTL As Ordered ONE
== END ==
LOC: M RAD 08:04
PROVIDERS: ATTEND Family Medicine
DX: R13.10 Dysphagia, unspecified (principal)

== ENCOUNTER → 2024-02-23 | Outpatient (CLI) | payer OTHER ==
[~2024-02-23] MED LIST changes: -E-Z-GAS II EFFERVESCENT PACKET (SODIUM BICARB./CITRIC ACID/SIMETHICONE) As Ordered ONE; -E-Z-HD 98% w/w 340GM SUSP BTL As Ordered ONE; -E-Z-PAQUE 96% w/w SUSP 176GM BTL As Ordered ONE; +ISOVUE-370 76% 100ML VIAL As Ordered ONE
== END ==
LOC: M RAD 08:16
PROVIDERS: ATTEND Family Medicine
DX: R91.1 Solitary pulmonary nodule (principal)
CPT/HCPCS: 71260; Q9967

== ENCOUNTER 2024-05-31 11:38 | Emergency (ER) | payer OTHER, MEDICAID ==
[~2024-05-31] VITALS: Ht 188 cm; Wt 126.6 kg
[2024-05-31 11:38] VITALS: BP 140/96; TEMP 97.5; O2SAT 97
[~2024-05-31 11:38] MED LIST changes: -ISOVUE-370 76% 100ML VIAL As Ordered ONE
[2024-05-31] MEDS ORDERED: FAMO1TAB11 (12:00)
[2024-05-31] MEDS ORDERED: TIZA10TA (12:00)
[2024-05-31] MEDS ORDERED: LORA-1041 (12:00)
[2024-05-31] MEDS ORDERED: PANT40TA29 (12:00)
[2024-05-31] MEDS ORDERED: ADV250INH (12:00)
[2024-05-31] MEDS ORDERED: AMLO1TAB24 (12:00)
== END 2024-05-31 16:42 | disposition left against medical advice (07) ==
LOC: M ED 11:38
DX: Z53.21 Procedure and treatment not carried out due to patient leaving prior to being seen by health care provider (principal)

== ENCOUNTER 2024-07-01 09:40 | Day surgery (SDC) | payer OTHER ==
[~2024-07-01] VITALS: Ht 188 cm; Wt 124.5 kg
[~2024-07-01 09:40] MED LIST changes: +ADV250INH; +ADV250INH INH; +AMLO1TAB24; +FAMO1TAB11; +FAMO1TAB11 PO; +LORA-1041; +LORA-243 PO; +NORV5TAB PO; +PANT40TA29; +PANT40TA29 PO; +TIZA10TA; +TIZA10TA PO
[2024-07-01] MEDS: NS 1,000 ML IV ONE (10:24)
[2024-07-01] MEDS ORDERED: fentaNYL 100 MCG/2 ML INJECTION As Ordered ONE (11:06)
[2024-07-01] MEDS ORDERED: MIDAZOLAM INJ 2MG/2ML VIAL As Ordered ONE (11:06)
[2024-07-01] MEDS ORDERED: propofoL 200 MG/20 ML VIAL As Ordered ONE (11:06)
[2024-07-01] MEDS ORDERED: LIDOCAINE 2% 100MG/5ML SDV (FOR ANES.) As Ordered ONE (11:06)
[2024-07-01 11:22] VITALS: TEMP 97.6
[2024-07-01 11:40] VITALS: BP 128/89; O2SAT 100
== END 2024-07-01 11:55 | disposition home or self-care (01) ==
LOC: M OPP 09:40
PROVIDERS: ATTEND Internal Medicine Gastroenterology
DX: K22.89 Other specified disease of esophagus (principal); K92.0 Hematemesis; R13.10 Dysphagia, unspecified; R12 Heartburn; J44.9 Chronic obstructive pulmonary disease, unspecified; R07.9 Chest pain, unspecified; Z79.1 Long term (current) use of non-steroidal anti-inflammatories (NSAID); Z79.51 Long term (current) use of inhaled steroids; Z79.899 Other long term (current) drug therapy; Z91.030 Bee allergy status
CPT/HCPCS: 43239; 88305; J2250; J3010

== ENCOUNTER → 2024-07-11 | Outpatient (CLI) | payer OTHER | LOC: M WUC 08:45 | PROVIDERS: ATTEND Nurse Practitioner Family | DX: M79.671 Pain in right foot (principal) ==

== ENCOUNTER → 2024-10-22 | Outpatient (CLI) | payer OTHER, MEDICAID ==
[~2024-10-22] MED LIST changes: -ADV250INH; -ADV250INH INH; +ADVA1AER9; +ADVA1AER9 INH
== END ==
LOC: M WUC 13:28
PROVIDERS: ATTEND Nurse Practitioner Family
DX: M25.521 Pain in right elbow (principal)

== ENCOUNTER → 2025-02-21 | Outpatient (REF) | payer OTHER, MEDICAID | LOC: M LAB REF 13:52 | PROVIDERS: ATTEND Nurse Practitioner Family | DX: J06.9 Acute upper respiratory infection, unspecified (principal); Z20.828 Contact with and (suspected) exposure to other viral communicable diseases ==

== ENCOUNTER → 2025-06-12 | Outpatient (CLI) | payer OTHER | LOC: M PLAIMG 06:38 | PROVIDERS: ATTEND Pain Medicine Interventional Pain Medicine | DX: M47.26 Other spondylosis with radiculopathy, lumbar region (principal); M47.817 Spondylosis without myelopathy or radiculopathy, lumbosacral region ==

== ENCOUNTER → 2025-10-06 | Outpatient (CLI) | payer OTHER | LOC: M WUC 11:49 | PROVIDERS: ATTEND Registered Nurse | DX: R04.2 Hemoptysis (principal) ==